=== PATIENT | female | born 1955 | race Caucasian/White ===

== ENCOUNTER 2021-12-04 16:18 | Outpatient (REF) | payer MEDICARE, SELFPAY ==
--- NOTE | ~2021-12-04 | US_ITS ---
EXAMINATION: US EXTRACRANIAL CAROTID DUPLEX, BILATERAL CLINICAL INFORMATION: Ocular ischemic syndrome. Rule out carotid occlusion COMPARISON: None TECHNIQUE: Real-time ultrasound and Doppler techniques (integrating B-mode 2-D vascular images, Doppler spectral analysis and color-flow Doppler imaging) were utilized to interrogate the extracranial carotid arteries, the vertebral arteries and proximal subclavian arteries bilaterally. The degree of stenosis is determined by criteria similar to NASCET. FINDINGS: Right Side: 1. There is moderate calcific atherosclerotic plaque seen in the bifurcation/proximal ICA region. 2. The common carotid artery PSV proximally is 51 cm/s and distally 20 cm/s. 3. The proximal internal carotid artery velocities are 45 cm/s systolic and 12 cm/s diastolic. 4. The proximal external carotid artery PSV is elevated at 527 cm/s. 5. The vertebral artery shows antegrade flow with elevated velocities at 248 cm/s. 6. The subclavian artery velocity is 251 cm/s. Left Side: 1. There is moderate calcific atherosclerotic plaque seen in the bifurcation/proximal ICA region. 2. The common carotid artery PSV proximally is 137 cm/s and distally 118 cm/s. 3. The proximal internal carotid artery velocities are 292 cm/s systolic and 70 cm/s diastolic. 4. The proximal external carotid artery PSV is 277 cm/s. 5. The vertebral artery shows antegrade flow. 6. The subclavian artery waveforms are normal with a velocity of 63 cm/s. US/US carotid duplex BI IMPRESSION: 1. RIGHT: Minimal, non-hemodynamically significant stenosis of the proximal right internal carotid artery corresponding to a 0-49% stenosis by velocity criteria. 2. LEFT: Moderate, hemodynamically significant stenosis of the proximal left internal carotid artery corresponding to a 50-79% stenosis by velocity criteria. 3. Also present are bilateral ECA stenoses, right significantly greater than left. A left vertebral artery stenosis may be present as well with significantly increased velocities.
== END 2021-12-04 16:19 | disposition home or self-care (01) ==
LOC: HO.US 16:18
PROVIDERS: Visit Provider Ophthalmology
DX: H34.11 Central retinal artery occlusion, right eye (principal); H35.82 Retinal ischemia
CPT/HCPCS: 93880

== ENCOUNTER 2021-12-08 14:26 | Outpatient (REF) | payer MEDICARE, SELFPAY ==
[2021-12-08 16:24] LABS: Blood Urea Nitrogen 11 mg/dL (9-16); Estimated Glomerular Filt Rate > 60
== END 2021-12-08 14:27 | disposition home or self-care (01) ==
LOC: HO.LAB 14:26
PROVIDERS: PCP Family Medicine; Visit Provider Surgery Vascular Surgery
DX: Z01.818 Encounter for other preprocedural examination (principal); I65.29 Occlusion and stenosis of unspecified carotid artery
CPT/HCPCS: 36415; 82565; 84520; 99202

== ENCOUNTER 2021-12-10 08:07 | Outpatient (REF) | payer MEDICARE, SELFPAY ==
--- NOTE | ~2021-12-10 | CT_ITS ---
EXAMINATION: CT ANGIOGRAM NECK WITH CONTRAST CLINICAL INFORMATION: Occlusion and stenosis of bilateral carotid arteries. COMPARISON: Carotid ultrasound 12/04/2021. TECHNIQUE: Test bolus sequences followed by intravenous administration 70 mL of Omnipaque 350. Helical imaging was performed in the axial plane from the thoracic inlet to the skull base. The data was processed at the clinical laboratory technologist workstation for generation of MIP sequences. Angled MIPs and volume rendered reformatted images were also generated at an offline 3D workstation. Stenoses are assessed in accordance with NASCET criteria unless otherwise indicated. This CT examination was performed using dose optimization techniques as appropriate, variously including the following: *Automated exposure control *Adjustment of mA and/or kV according to patient size (this includes techniques or standardized protocols for targeted exams where dose is matched to indication/reason for exam; i.e. extremities or head) *Use of iterative reconstruction technique DLP: 415 mGy-cm FINDINGS: NECK CTA: The aortic arch demonstrates atheromatous calcifications but is patent. There is approximately moderate stenosis of the left subclavian artery origin but the exact degree of stenosis is difficult to precisely estimate. The right common carotid artery is patent. Significant noncalcified and calcified plaque is seen at the right carotid bifurcation resulting in occlusion of the right internal carotid artery. The left common carotid arteries patent. Calcified and noncalcified plaque is seen at the left carotid bifurcation extending along the proximal left internal carotid artery resulting in luminal irregularity and plaque ulceration but with less than 50% stenosis. The cervical segment of left ICA is patent. The right vertebral artery demonstrates normal course and caliber. The left vertebral artery demonstrates decreased opacification compared with the contralateral side in the lower neck of uncertain significance. The upper vertebral arteries are both symmetrically opacified. PARTIALLY IMAGED HEAD CTA: The right ICA which is occluded in the neck reconstitutes at the carotid siphon and is patent through the carotid terminus. The visualized intracranial arteries are otherwise unremarkable. There is disposition of the bilateral channel marketing specialist. NON-VASCULAR FINDINGS: The cervical soft tissues are within normal limits. Emphysema is noted in the upper lungs. Multilevel degenerative changes are seen within the spine. There is prominent disc osteophyte complex at C5-C6. CT/CT angio neck IMPRESSION: Right internal carotid artery is occluded from its origin but reconstitutes at the carotid siphon. Atheromatous changes are seen at the left carotid bifurcation but results in less than 50% stenosis of the proximal internal carotid artery. Left vertebral artery demonstrates decreased opacification in the lower neck compared with the contralateral side but the upper cervical segments are widely patent and appear symmetric. Partially visualized intracranial arteries are unremarkable. Incidentally noted emphysema. This critical result was discussed with Dr. Foley on 12/15/2021 10:18 AM, and it was ascertained that the content and urgency of the report was understood at the time of direct communication.
[2021-12-10] MEDS: iohexoL 350 MG/ML 100 ML INFUS..BTL IV (09:44)
== END 2021-12-10 08:08 | disposition home or self-care (01) ==
LOC: HO.CT 08:07
PROVIDERS: PCP Family Medicine; Visit Provider Surgery Vascular Surgery
DX: I65.23 Occlusion and stenosis of bilateral carotid arteries (principal)
CPT/HCPCS: 70498; Q9967

== ENCOUNTER → 2021-12-15 09:33 | Outpatient (BNVA) | payer MEDICARE, SELFPAY | PROVIDERS: PCP Family Medicine; Visit Provider Surgery Vascular Surgery | DX: I65.23 Occlusion and stenosis of bilateral carotid arteries (principal); Z79.82 Long term (current) use of aspirin; Z79.899 Other long term (current) drug therapy | CPT/HCPCS: 99212 ==

== ENCOUNTER 2022-02-09 10:11 | Outpatient (REF) | payer MEDICARE, SELFPAY ==
--- NOTE | ~2022-02-09 | MM_ITS ---
EXAMINATION: MM SCREENING DIGITAL BREAST TOMOSYNTHESIS, BILATERAL CLINICAL INFORMATION: Screening. Asymptomatic. The lifetime risk of breast cancer based on the Tyrer-Cuzick Model is 4%. COMPARISON: Outside mammography: 05/11/2017, 11/05/2016, 05/05/2016 ([place]) TECHNIQUE: Digital breast tomosynthesis is performed in both the craniocaudal and mediolateral oblique views along with computer-aided detection (CAD). Synthesized 2D images are generated from the tomosynthesis. FINDINGS: The breasts are almost entirely fatty (ACR BI-RADS breast composition Category a). There are no significant masses, abnormal calcifications, or other abnormalities. Background stromal markings are stable. The axilla and skin contours are unremarkable. No significant changes. MM/MM tomosynthesis screening BI IMPRESSION: No mammographic evidence of malignancy. ASSESSMENT: BI-RADS 1: Negative RECOMMENDATION: Routine annual mammography screening. This patient's information was entered into a reminder system with a target due date for their next mammogram.
== END 2022-02-09 10:12 | disposition home or self-care (01) ==
LOC: HO.MAMMO 10:11
PROVIDERS: Visit Provider Family Medicine
DX: Z12.31 Encounter for screening mammogram for malignant neoplasm of breast (principal)
CPT/HCPCS: 77063; 77067

== ENCOUNTER 2022-07-01 08:29 | Outpatient (REF) | payer MEDICARE, SELFPAY ==
--- NOTE | ~2022-07-01 | US_ITS ---
EXAMINATION: US EXTRACRANIAL CAROTID DUPLEX, BILATERAL CLINICAL INFORMATION: Occlusion and stenosis of carotid arteries. COMPARISON: Carotid ultrasound from 12/04/[address] angiography neck of 12/10/2021. TECHNIQUE: Real-time ultrasound and Doppler techniques (integrating B-mode 2-D vascular images, Doppler spectral analysis and color-flow Doppler imaging) were utilized to interrogate the extracranial carotid arteries, the vertebral arteries and proximal subclavian arteries bilaterally. The degree of stenosis is determined by criteria similar to NASCET. FINDINGS: Right Side: There is moderate calcified atherosclerotic plaque of the bifurcation/proximal ICA region. The common carotid artery peak systolic velocity (PSV) proximally is 56 cm/s and distally is 18 cm/s. The internal carotid artery remains occluded, as observed on 12/10/2021. The proximal external carotid artery PSV is 471 cm/s. The visualized vertebral artery is patent, peak velocity of 112 cm/s. The subclavian artery waveforms are normal, peak velocity of 111 cm/s. Left Side: There is moderate atherosclerotic plaque of the bifurcation/proximal ICA region. The common carotid artery peak systolic velocity (PSV) proximally is 141 cm/s and distally is 120 cm/s. The proximal internal carotid artery velocities are 309 cm/s systolic and 54 cm/s diastolic (image 100). The ICA/CCA ratio is 2.6. The proximal external carotid artery PSV is 311 cm/s. The vertebral artery shows normal antegrade flow, peak velocity of 73 cm/s. The subclavian artery waveform is monophasic, consistent with a proximal stenosis, with peak velocity of 76 cm/s. US/US carotid duplex BI IMPRESSION: * Atherosclerotic disease of the carotid arteries. The right internal carotid artery remains completely occluded, as observed on CT angiography from 12/10/2021. There is hemodynamically significant stenosis of the right external carotid artery. * There is persistent hemodynamically significant stenosis of the proximal left internal carotid artery corresponding to estimated range of 50-79% stenosis, as observed on prior ultrasound from 12/04/2021. Also, there is hemodynamically significant stenosis of the proximal left external carotid artery.
== END 2022-07-01 08:30 | disposition home or self-care (01) ==
LOC: HO.HMGCX 08:29
PROVIDERS: PCP Family Medicine; Visit Provider Surgery Vascular Surgery
DX: I65.23 Occlusion and stenosis of bilateral carotid arteries (principal)
CPT/HCPCS: 93880

== ENCOUNTER → 2023-01-03 12:43 | Outpatient (BNVA) | payer MEDICARE, SELFPAY | PROVIDERS: PCP Family Medicine; Visit Provider Surgery Vascular Surgery | DX: I65.23 Occlusion and stenosis of bilateral carotid arteries (principal) | CPT/HCPCS: 99212 ==

== ENCOUNTER 2023-07-04 10:30 | Outpatient (REF) | payer MEDICARE, SELFPAY ==
--- NOTE | ~2023-07-04 | US_ITS ---
EXAMINATION: US EXTRACRANIAL CAROTID DUPLEX, BILATERAL CLINICAL INFORMATION: Carotid artery stenosis COMPARISON: Carotid duplex on 07/01/2022 TECHNIQUE: Real-time ultrasound and Doppler techniques (integrating B-mode 2-D vascular images, Doppler spectral analysis and color-flow Doppler imaging) were utilized to interrogate the extracranial carotid arteries, the vertebral arteries and proximal subclavian arteries bilaterally. The degree of stenosis is determined by criteria similar to NASCET. FINDINGS: Right Side: 1. There is severe atherosclerotic plaque seen in the bifurcation/proximal ICA region. 2. The common carotid artery PSV proximally is 67 cm/s and distally 19 cm/s. 3. The proximal internal carotid artery is occluded. 4. The proximal external carotid artery PSV is 435 cm/s. 5. The vertebral artery shows antegrade flow. 6. The subclavian artery waveforms are normal. Left Side: 1. There is moderate atherosclerotic plaque seen in the bifurcation/proximal ICA region. 2. The common carotid artery PSV proximally is 158 cm/s and distally 94 cm/s. 3. The proximal internal carotid artery velocities are 269 cm/s systolic and 58 cm/s diastolic. 4. The proximal external carotid artery PSV is 253 cm/s. 5. The vertebral artery shows antegrade flow. 6. The subclavian artery waveforms are normal. US/US carotid duplex BI IMPRESSION: 1. RIGHT: Occluded, stable. 2. LEFT: Moderate, hemodynamically significant stenosis of the proximal left internal carotid artery corresponding to a 50-79% stenosis by velocity criteria. 3. There is no change in the category severity of disease when compared to the previous study dated 07/01/2022.
== END 2023-07-04 10:31 | disposition home or self-care (01) ==
LOC: HO.HMGCX 10:30
PROVIDERS: PCP Family Medicine; Visit Provider Surgery Vascular Surgery
DX: I65.23 Occlusion and stenosis of bilateral carotid arteries (principal)
CPT/HCPCS: 93880

== ENCOUNTER 2023-07-14 10:56 | Outpatient (AMB) | payer MEDICARE, SELFPAY ==
--- NOTE | 2023-07-14 11:00 | MHC.OFFVIS ---
Intake Vital Signs 07/14/23 11:03 07/14/23 11:05 Height 4 ft 11 in Weight 172 lb BMI 34.7 BP 138/84 140/88 H Intake Visit Reasons: Follow up 07/04 Carotid US Intake Note: pt here for s/p carotid US on 07/04/23.Pt says shes doing good her only concern is her legs tired easily when she walks ans she still gets headaches all the time Allergies amlodipine Adverse Reaction (Unknown, Verified 07/14/23 11:03) Unknown amoxicillin Adverse Reaction (Unknown, Verified 07/14/23 11:03) Unknown benazepril Adverse Reaction (Unknown, Verified 07/14/23 11:03) Unknown erythromycin base Adverse Reaction (Unknown, Verified 07/14/23 11:03) Unknown latex Adverse Reaction (Unknown, Verified 07/14/23 11:03) Unknown Macrolide Antibiotics Adverse Reaction (Unknown, Verified 07/14/23 11:03) Unknown Penicillins Adverse Reaction (Unknown, Verified 07/14/23 11:03) Unknown Sulfa (Sulfonamide Antibiotics) Adverse Reaction (Unknown, Verified 07/14/23 11:03) Unknown HPI Follow up 07/04 Carotid US HPI Details Very pleasant 67-year-old female presents for follow-up regarding carotid disease. She reports no interval issues. She continues to smoke about a pack per day. She is now for follow-up with carotid ultrasound. Of note daughter was at bedside and it notified me that she has difficulty ambulating distances. She cannot even walk a block. She notes leg cramping right more so than left. This has been progressing over the last year to. She now is also for lower extremity evaluation as well. [facility] Medical History (Updated 07/14/23 @ 11:32 by Stefan Foley MD) Graves disease Back ache Carpal tunnel syndrome Exophthalmic ophthalmoplegia Hyperlipidemia HTN (hypertension) Severe obesity (BMI 35.0-35.9 with comorbidity) Microhematuria Nephrolithiasis Continuous tobacco abuse Hypothyroidism due to medication Type 2 diabetes mellitus with diabetic autonomic (poly)neuropathy Gastro-esophageal reflux disease without esophagitis Diabetic nephropathy PAD (peripheral artery disease) Social History (Updated 01/03/23 @ 12:58 by RAZA Patel) Patient Tobacco Use Status: Current everyday Tobacco user Cigarettes Per Day: 20 Review of Systems Const All systems reviewed & are unremarkable except as noted in HPI and below Reports no additional complaints ENT Reports Normal hearing present Card Denies chest pain, Denies chest pain at rest, Denies chest pain with activity and Denies pedal edema Resp Denies cough GI Denies abdominal pain Musc Denies abnormal gait, Denies muscle cramps and Denies radiating pain into limb Skin/Breast Denies skin ulcer and Denies wounds Neuro Reports Normal hearing present and Denies abnormal gait Psych Reports no additional complaints Physical Exam Vital Signs: Last Vital Signs BP 140/88 H 07/14/23 11:05 BMI result Body Mass Index 34.7 Const General: cooperative, healthy appearing and comfortable Orientation/consciousness: oriented to person, oriented to place and oriented to time HEENT Head: Yes normal to inspection Neck Neck: Yes normal visual inspection Carotids: no bruits Chest Chest palpation & inspection: normal inspection of the chest Resp Effort & Inspection: normal respiratory effort and able to speak in complete sentences Auscultation: clear to auscultation bilaterally, no crackles, no rales, no rhonchi and no wheezes Cardio Other: Bilateral DP Rate: regular rate Rhythm: regular rhythm Heart sounds: S1 normal heart sound present and S2 normal heart sound present Bruits: no carotid bruits GI Inspection: Yes normal to inspection Skin Wounds: no wounds Hair: normal Neuro General: oriented to person, oriented to place and oriented to time Cranial nerves: Yes CN's II-XII intact bilaterally and Yes Normal hearing present Cognition (Neuro): normal cognition Motor exam (neuro): 5/5 motor strength present throughout Extrem Other: venous exam: No significant superficial varicosities or spider telangiectasias, minimal edema General: No clubbing, No cyanosis and No edema Psych Appearance: grossly normal Mental Status: mental status grossly normal Speech and movement: Normal speech and movement present Assessment & Plan Assessment & Plan (1) Bilateral carotid artery stenosis: Code(s): I65.23 - Occlusion and stenosis of bilateral carotid arteries Plan: In short patient has asymptomatic carotid disease. We have reviewed signs and symptoms of a stroke. We also discussed risk factor modification inclusive a healthy diet low in cholesterol. The patient will follow up with us with surveillance ultrasound of the carotids 1 year. Should there be any changes or signs or symptoms of a stroke we will be happy to see them back sooner. Thank you for allowing us to participate in this patient's care. If there are any questions or concerns please do not hesitate to contact us. (2) PAD (peripheral artery disease): Code(s): I73.9 - Peripheral vascular disease, unspecified Plan: In short patient does have an element of peripheral vascular disease. She reports claudication type symptoms. In addition she has a remote history of arterial testing which I do not have access to. We will obtain noninvasive arterial testing. We did discuss routine risk factor modification in particular smoking cessation. She will follow up with us after testing. Thank you for allowing us to assist in her care Orders: Orders US carotid duplex BI 364 Days I65.23 - Occlusion and stenosis of bilateral carotid arteries US arterial duplex LE BI 1 Week I73.9 - Peripheral vascular disease, unspecified Coding Level of Care Code Est Pt Level 4 (43942) Diagnoses Bilateral carotid artery stenosis I65.23 PAD (peripheral artery disease) I73.9
[2023-07-14 11:03] VITALS: BP 138/84; BMI 34.7
[2023-07-14 11:05] VITALS: BP 140/88
== END 2023-07-14 11:34 | disposition home or self-care (01) ==
PROVIDERS: PCP Family Medicine; Visit Provider Surgery Vascular Surgery
DX: I65.23 Occlusion and stenosis of bilateral carotid arteries (principal); I73.9 Peripheral vascular disease, unspecified
CPT/HCPCS: 99213

== ENCOUNTER → 2023-07-14 10:56 | Outpatient (BNVA) | payer MEDICARE, SELFPAY | PROVIDERS: PCP Family Medicine; Visit Provider Surgery Vascular Surgery | DX: I65.23 Occlusion and stenosis of bilateral carotid arteries (principal); I73.9 Peripheral vascular disease, unspecified | CPT/HCPCS: 99212 ==

== ENCOUNTER 2024-07-24 06:24 | Inpatient (IN) | payer MEDICARE, SELFPAY ==
--- NOTE | 2024-07-24 | ECG_ITS ---
Test Reason : fall Blood Pressure : / mmHG Vent. Rate : 065 BPM Atrial Rate : 065 BPM P-R Int : 146 ms QRS Dur : 084 ms QT Int : 398 ms P-R-T Axes : 005 038 059 degrees QTc Int : 413 ms Normal sinus rhythm Normal ECG No previous ECGs available Referred By: Generic ED Physician Electronically Signed By:Neo Delacruz
--- NOTE | ~2024-07-24 | XR_ITS ---
EXAMINATION: XR RIBS, LEFT CLINICAL INFORMATION: Trauma. Pain COMPARISON: None available. TECHNIQUE: 3 views of the left ribs were obtained. FINDINGS: Slightly oblique nondisplaced fracture lateral 11th rib. No other fractures are seen. Lungs clear. No pneumothorax. Heart and pulmonary vessels normal. XR/XR ribs LT min 3V w CXR1V IMPRESSION: Left 11th rib fracture. Electronically signed by: Fish Fabian MD 07/24/2024 10:47 AM EDT
--- NOTE | ~2024-07-24 | CT_ITS ---
EXAMINATION: CT HEAD WITHOUT CONTRAST CT CERVICAL SPINE WITHOUT CONTRAST CLINICAL INFORMATION: Fall. Trauma. COMPARISON: None TECHNIQUE: Contiguous axial imaging was performed from the skull base to vertex without intravenous administration of contrast. Contiguous axial imaging was performed from the upper chest through the skull base without intravenous administration of contrast. Coronal and sagittal reformats were obtained at the acquisition workstation. This CT examination was performed using dose optimization techniques as appropriate, variously including the following: *Automated exposure control *Adjustment of mA and/or kV according to patient size (this includes techniques or standardized protocols for targeted exams where dose is matched to indication/reason for exam; i.e. extremities or head) *Use of iterative reconstruction technique DLP: 898 mGy-cm FINDINGS: Head: There is no evidence of acute intracranial hemorrhage or edematous territorial infarction. [place]-white matter differentiation appears preserved. Proportional prominence of the ventricles and cortical sulci with diffuse volume loss. Patchy hypodensities within the periventricular and subcortical white matter likely representing mild to moderate chronic microangiopathy. Small chronic lacunar infarcts within the right caudate and and lentiform nucleus. There is no mass effect or midline shift. No acute extra-axial collection. No obstructive hydrocephalus. No acute soft tissue or osseous abnormalities. Remote deformities of bilateral lamina papyracea and herniation of extraconal orbital fat with likely entrapment of the medial rectus muscles. There is atrophy of bilateral inferior recti. Mild mucosal thickening involving the visualized ethmoid air cells and left compartment of sphenoid sinus. Trace left mastoid effusion. Right mastoid air cells are clear. Cervical Spine: The atlantooccipital and atlantoaxial articulations remain well aligned. Mild degenerative changes of the atlantoaxial articulations. Straightening of the normal cervical lordosis. Otherwise, there is anatomic alignment of the vertebral bodies and posterior elements. No evidence of acute fracture or subluxation. The vertebral body heights are maintained. Multilevel cervical spondylosis with marginal osteophytes, endplate degenerative changes and intervertebral disc space narrowing with findings most pronounced at C4-C5. At C4-C5 there is disc osteophyte complex with uncovertebral hypertrophy, right greater than left and severe right foraminal narrowing. At C5-C6 there is disc osteophyte complex with asymmetric left uncovertebral hypertrophy and severe left foraminal narrowing. No high-grade spinal canal stenosis. Mild multilevel facet arthropathy. There is no prevertebral soft tissue swelling. The thyroid gland is not well-visualized/diminutive in size. The lung apices demonstrate mild emphysematous changes. CT/CT cervical spine wo IV con IMPRESSION: 1. No acute intracranial pathology. Diffuse volume loss and mild to moderate chronic microangiopathy and few chronic lacunar infarcts. 2. No acute fracture or traumatic subluxation involving the cervical spine. Multilevel cervical spondylosis as detailed with severe right foraminal stenosis at C4-C5 and severe left foraminal stenosis at C5-C6. 3. Remote deformities of bilateral lamina papyracea and herniation of extraconal orbital fat with likely entrapment of the medial rectus muscles. Electronically signed by: Ephraim Oneil MD 07/24/2024 10:59 AM EDT
[2024-07-24 06:25] VITALS: BP 99/58; PULSE 66; RESP 16; TEMP 36.4; O2SAT 97; BMI 31.7
[2024-07-24 06:55] LABS: Basophils Absolute Auto 0.1 X10*3/uL (0.0-0.2); Basophils Percent Auto 0.4 % (0-2); Eosinophils Absolute Auto 0.3 X10*3/uL (0.0-0.4); Eosinophils Percent Auto 1.7 % (0-4); Hematocrit 39.9 % (37.0-47.0); Hemoglobin 14.3 g/dl (12.0-16.0); Imm Gran Abs Auto 0.08 X10*3/uL (0.00-0.03); Imm Gran Pct Auto 0.5 % (0.0-0.4); Lymphocytes Absolute Auto 2.2 X10*3/uL (1.2-4.9); Lymphocytes Percent Auto 13.9 % (20-40); MANUAL DIFF FLAG NO; Mean Corpuscular HGB Conc 35.8 g/dl (31.0-35.0); Mean Corpuscular Hemoglobin 32.2 pg (27.0-33.0); Mean Corpuscular Volume 89.9 fL (80.0-98.0); Mean Platelet Volume 8.8 fL (9.4-12.3); Monocytes Absolute Auto 1.1 X10*3/uL (0.1-1.2); Monocytes Percent Auto 7.1 % (2-11); Neutrophils Percent Auto 76.4 % (45-73); Platelet Count 252 X10*3/uL (160-400); Red Blood Count 4.44 X10*6/uL (4.20-5.50); Red Cell Distribution Width 14.1 % (11.0-16.0); White Blood Count 15.7 X10*3/uL (4.8-10.8)
[2024-07-24 07:13] LABS: Alanine Aminotransferase 38 U/L (0-31); Albumin Level 4.2 g/dL (3.5-5.0); Alkaline Phosphatase 63 U/L (39-117); Anion Gap 16 (12-20); Aspartate Amino Transferase 30 U/L (5-31); Bilirubin Total 0.5 mg/dL (0.0-1.0); Blood Urea Nitrogen 21 mg/dL (9-16); Calcium 10.6 mg/dL (8.4-10.2); Carbon Dioxide 24 mmol/L (22-29); Chloride 95 mmol/L (96-108); Creatinine Clr Calc Pharmacy 31.4; Estimated Glomerular Filt Rate 36; Glucose Random 132 mg/dL (60-115); Potassium 3.6 mmol/L (3.3-5.1); Sodium 131 mmol/L (135-145); Total Protein 7.2 g/dL (6.5-8.0)
--- NOTE | 2024-07-24 08:00 | ED_ITS ---
HPI - Fall General Chief Complaint: Fall Stated Complaint: fell twice, left side pain Time Seen by Provider: 07/24/24 07:50 Source: patient Limitations: no limitations History of Present Illness HPI Narrative: THIS IS 68 YEARS OLD PATIENT WITH HISTORY OF DIABETES BLIND IN THE RIGHT EYE PRESENTED TO EMERGENCY ROOM AFTER 2 FALL. PATIENT STATES THAT THE FOOT GAVE UP TWICE. SHE IS COMPLAINING OF LEFT CHEST WALL PAIN. DENIES ANY LOC. SHE LIVES BY HERSELF complaint: fall Onset (ago): hour(s) (4) Fall from: standing Fall witnessed: no Place fall occurred: home Loss of consciousness: none Prolonged down time: no Related Data Home Medications ?Medication ?Instructions ?Recorded ?Confirmed atorvastatin 40 mg tablet 40 mg PO DAILY 12/08/21 blood sugar diagnostic ([employer] #10 ea 12/08/21 Ultra Test strips) brimonidine 0.2 % eye drops 0 drp ophthalmic (eye) 12/08/21 [id number]-rcxahmwuvesab-kkipercg tab PO 12/08/21 50 mg-325 mg-40 mg tablet dulaglutide 0.75 mg/0.5 mL 0.75 mg subcut QWEEK 12/08/21 subcutaneous pen injector ([employer]) glipizide 10 mg tablet, extended 10 mg PO BID 12/08/21 release 24 hr hydrochlorothiazide 12.5 mg capsule 12.5 mg PO DAILY 12/08/21 lancets 30 gauge ([employer] Delica #100 ea 12/08/21 Lancets) latanoprost 0.005 % eye drops 0 drp ophthalmic (eye) 12/08/21 levothyroxine 100 mcg tablet 100 mcg PO DAILY 12/08/21 losartan 100 mg tablet 100 mg PO DAILY 12/08/21 metformin 500 mg tablet,extended 500 mg PO DAILY 12/08/21 release 24 hr nicotine 21 mg/24 hr daily 1 patch topical DAILY 12/08/21 transdermal patch omeprazole 40 mg capsule,delayed 40 mg PO DAILY 12/08/21 release timolol maleate 0.5 % eye drops 0 drp ophthalmic (eye) 12/08/21 empagliflozin 25 mg tablet 25 mg PO DAILY 01/03/23 (Jardiance) Allergies Allergy/AdvReac Type Severity Reaction Status Date / Time amlodipine AdvReac Unknown Unknown Verified 07/24/24 06:36 amoxicillin AdvReac Unknown Unknown Verified 07/24/24 06:36 benazepril AdvReac Unknown Unknown Verified 07/24/24 06:36 erythromycin base AdvReac Unknown Unknown Verified 07/24/24 06:36 latex AdvReac Unknown Unknown Verified 07/24/24 06:36 Macrolide Antibiotics AdvReac Unknown Unknown Verified 07/24/24 06:36 Penicillins AdvReac Unknown Unknown Verified 07/24/24 06:36 Sulfa (Sulfonamide AdvReac Unknown Unknown Verified 07/24/24 06:36 Antibiotics) Review of Systems 2 Constitutional: Constitutional: Reports no additional constitutional complaints ENT: Reports system reviewed and no additional complaints, except as documented Genitourinary: Genitourinary: Reports no additional female genitourinary complaints [facility] Past Medical History Attestation statement: The following information was validated with the patient. [facility] Narrative: DIABETES, OBESITY, BLIND IN THE RIGHT EYE, HYPERTENSION Medical History Graves disease Back ache Carpal tunnel syndrome Exophthalmic ophthalmoplegia Hyperlipidemia HTN (hypertension) Severe obesity (BMI 35.0-35.9 with comorbidity) Microhematuria Nephrolithiasis Continuous tobacco abuse Hypothyroidism due to medication Type 2 diabetes mellitus with diabetic autonomic (poly)neuropathy Gastro-esophageal reflux disease without esophagitis Diabetic nephropathy PAD (peripheral artery disease) Social History Social History Patient Tobacco Use Status: Current everyday Tobacco user Cigarettes Per Day: 20 Advance Directives: No Advance Directives Information Provided: Yes Do you have a plan to hurt others: No Plan Physical Exam 2 Vital Signs: Vital Signs: Last Vital Signs Temp 97.7 F 07/24/24 12:42 Pulse 65 07/24/24 12:42 Resp 16 07/24/24 12:42 BP 167/48 H 07/24/24 12:42 Pulse Ox 93 07/24/24 12:42 O2 Del Method Room Air 07/24/24 12:42 BMI result Body Mass Index 31.7 SHE IS AWAKE ALERT IN NOT ACUTE DISTRESS Const: General: comfortable Nutritional Appearance: well nourished HEENT: General nose exam: Normal external nose present Face and sinus: Yes normal facial exam Eyes: Other: NO RED REFLEX IN THE OD Neck: Neck: Yes normal visual inspection Resp: Effort & Inspection: normal respiratory effort Auscultation: clear to auscultation bilaterally Cardio: Jugular venous distension: no JVD Rate: regular rate Rhythm: r egular rhythm GI: Inspection: Yes normal to inspection Palpation (GI): Soft to palpation, not firm and nontender Percussion: Yes normal to percussion Skin: General skin exam: no rashes or lesions noted Course Reevaluation(s) Reevaluation #1: Workup completed the patient has an ROMERO, elevated white count, hypercalcemia, left rib fracture will admit for IV hydration Time: 12:58 Medications Administered Discontinued Medications Generic Name Dose Route Start Last Admin Trade Name Freq PRN Reason Stop Dose Admin Acetaminophen 975 mg 07/24/24 08:34 07/24/24 08:45 Acetaminophen 325 Mg Tablet PO 07/24/24 08:35 975 mg ONCE ONE Administration Sodium Chloride 1,000 mls @ 999 mls/hr 07/24/24 09:45 07/24/24 10:14 Ns IVCONT 07/24/24 10:45 999 mls/hr .Q1H1M LENCHO Administration Medical Decision Making Medical Decision Making [facility] [place] Narrative: PATIENT PRESENTED AFTER A FALL COMPLAINING OF LEFT CHEST WALL PAIN WE WILL OBTAIN IMAGING OF THE CHEST AND REASSESS ALSO CHECK LAB WORK EKG Differential Diagnosis Differential Diagnoses: The differential diagnosis associated with the presentation includes RIB FRACTURE/PNEUMOTHORAX/CVA/SUBDURAL HEMATOMA Consult Healthcare Provider Management of the patient was discussed with: Hospitalist Lab Data [facility] [place] Lab Attestation statement: I reviewed the patient's lab results. 07/24/24 06:48 07/24/24 06:48 Labs: Lab Results 07/24/24 07/24/24 Range/Units 06:48 11:25 WBC 15.7 H (4.8-10.8) X10*3/uL RBC 4.44 (4.20-5.50) X10*6/uL Hgb 14.3 (12.0-16.0) g/dl Hct 39.9 (37.0-47.0) % MCV 89.9 (80.0-98.0) fL MCH 32.2 (27.0-33.0) pg MCHC 35.8 H (31.0-35.0) g/dl RDW 14.1 (11.0-16.0) % Plt Count 252 (160-400) X10*3/uL MPV 8.8 L (9.4-12.3) fL Immature Gran % (Auto) 0.5 H (0.0-0.4) % Neut % (Auto) 76.4 H (45-73) % Lymph % (Auto) 13.9 L (20-40) % [place] % (Auto) 7.1 (2-11) % Eos % (Auto) 1.7 (0-4) % Baso % (Auto) 0.4 (0-2) % Lymph # (Auto) 2.2 (1.2-4.9) X10*3/uL [place] # (Auto) 1.1 (0.1-1.2) X10*3/uL Eos # (Auto) 0.3 (0.0-0.4) X10*3/uL Baso # (Auto) 0.1 (0.0-0.2) X10*3/uL Abs Immat Gran (auto) 0.08 H (0.00-0.03) X10*3/uL Absolute Neuts (auto) 12.0 H (2.0-8.3) x10*3/uL Absolute Nucleated RBC 0.000 (0.0-0.012) X10*3/uL Nucleated RBC % (auto) 0.0 (0.0-0.2) /100WBC Sodium 131 L (135-145) mmol/L Potassium 3.6 (3.3-5.1) mmol/L Chloride 95 L (96-108) mmol/L Carbon Dioxide 24 (22-29) mmol/L Anion Gap 16 (12-20) BUN 21 H (9-16) mg/dL Creatinine 1.45 H (0.5-1.4) mg/dL Estim Creat Clear Calc 31.4 Estimated GFR 36 Random Glucose 132 H (60-115) mg/dL Calcium 10.6 H (8.4-10.2) mg/dL Total Bilirubin 0.5 (0.0-1.0) mg/dL AST 30 (5-31) U/L ALT 38 H (0-31) U/L Alkaline Phosphatase 63 (39-117) U/L Troponin I High Sens < 2.7 (<3.5-17.0) ng/L Total Protein 7.2 (6.5-8.0) g/dL Albumin 4.2 (3.5-5.0) g/dL Urine Color Yellow Urine Appearance Clear Urine pH 6.5 (5.0-9.0) Ur Specific [place] 1.010 (1.005-1.025) Urine Protein Negative (Neg-Trace) mg/dL Urine Glucose (UA) Negative (Negative) mg/dL Urine Ketones Trace (Negative) mg/dL Urine Blood Negative (Negative) Urine Nitrite Negative (Negative) Ur Leukocyte Esterase Small (1+) H (Negative) Urine RBC 0-2 (0-2) /HPF Urine WBC 6-10 H (0-5) /HPF Ur Squamous Epith Cells 6-10 (0-2) /HPF Urine Bacteria Trace (None Seen) Hyaline Casts 0-2 (0-2) /LPF Independent Interpretation I performed an independent interpretation of an: Plain X-Ray Radiology Impression Discussion of test interpretation with radiology: I have reviewed the radiologist's reading. Independent Historian Clinical information obtained from an independent historian. History obtained from or confirmed by: EMS and Other (daughter) Chronic Conditions Patient?s care impacted by: Diabetes Discharge Plan Discharge Clinical Impression: ROMERO (acute kidney injury), Hypercalcemia Fracture of rib Qualifiers: Encounter type: initial encounter Rib fracture type: single rib Fracture type: closed Laterality: left Qualified Code(s): S22.32XA - Fracture of one rib, left side, initial encounter for closed fracture Patient Disposition: Admitted As Inpatient Print Language: Lithuanian
[2024-07-24 08:29] LABS: Troponin-I High Sensitivity < 2.7 ng/L (<3.5-17.0)
--- NOTE | 2024-07-24 08:38 | PC.NURSE ---
Pt to Xray.
[2024-07-24 08:42] VITALS: BP 136/49; PULSE 67; RESP 20; O2SAT 97
[2024-07-24] MEDS: Acetaminophen 325 MG TABLET 975 MG PO (08:45)
[2024-07-24] MEDS: 0.9 % Sodium Chloride 1,000 ML 999 ML IVCONT (10:14)
--- NOTE | 2024-07-24 10:14 | PC.NURSE ---
Pt denies any urge to void for urine sample at this time. IV established, IVF bolus hung per order.
[2024-07-24 11:31] LABS: Appearance Urine Clear; Color Urine Yellow; Glucose Urine UA Negative (Negative); Leukocyte Esterase Urine Small (1+) (Negative); Nitrite Urine Negative (Negative); PH 6.5 (5.0-9.0); UMIC TRIGGER UACC YES; Urine Blood Negative (Negative); Urine Ketones Trace mg/dL (Negative); Urine Protein Negative (Neg-Trace)
[2024-07-24 11:34] LABS: Bacteria Urine Trace (None Seen); Hyaline Casts Urine 0-2 /LPF (0-2); RBC Urine 0-2 /HPF (0-2); UACC Culture Trigger YES
[2024-07-24 12:42] VITALS: BP 167/48; PULSE 65; RESP 16; TEMP 36.5; O2SAT 93
--- NOTE | 2024-07-24 13:18 | PM.IMHP ---
History of Present Illness Date of Service: 07/24/24 Chief Complaint: Romero 68-year-old female with a history of diabetes blind in the right eye along with peripheral artery disease and hypertension presents after 2 falls at home. She told her son-in-law both times that she felt her legs gave out and went to the floor. She denies loss of consciousness. She also denies palpitations prior to fall. On review of medications, patient takes glyburide twice daily. Son-in-law faithful with point of cares. Notes reviewed and several point of cares are in the 60s. She was also noted to be hyponatremic. She will be admitted for treatment of same Review of Systems Review of Systems: Denies chest pain Denies shortness of breath Denies nausea vomiting diarrhea Denies fever chills [facility] Medical History (Updated 07/24/24 @ 13:23 by Liu Gerber DO) Graves disease Back ache Carpal tunnel syndrome Exophthalmic ophthalmoplegia Hyperlipidemia HTN (hypertension) Severe obesity (BMI 35.0-35.9 with comorbidity) Microhematuria Nephrolithiasis Continuous tobacco abuse Hypothyroidism due to medication Type 2 diabetes mellitus with diabetic autonomic (poly)neuropathy Gastro-esophageal reflux disease without esophagitis Diabetic nephropathy PAD (peripheral artery disease) Social History Patient Tobacco Use Status: Current everyday Tobacco user Cigarettes Per Day: 20 Advance Directives: No Advance Directives Information Provided: Yes Do you have a plan to hurt others: No Plan Meds Allergies Allergy/AdvReac Type Severity Reaction Status Date / Time amlodipine AdvReac Unknown Unknown Verified 07/24/24 06:36 amoxicillin AdvReac Unknown Unknown Verified 07/24/24 06:36 benazepril AdvReac Unknown Unknown Verified 07/24/24 06:36 erythromycin base AdvReac Unknown Unknown Verified 07/24/24 06:36 latex AdvReac Unknown Unknown Verified 07/24/24 06:36 Macrolide Antibiotics AdvReac Unknown Unknown Verified 07/24/24 06:36 Penicillins AdvReac Unknown Unknown Verified 07/24/24 06:36 Sulfa (Sulfonamide AdvReac Unknown Unknown Verified 07/24/24 06:36 Antibiotics) Active Medications: Current Medications Acetaminophen (Acetaminophen 325 Mg Tablet) 650 mg PO Q6H PRN PRN Reason: Pain, Mild (Pain Scale 1-3), fever or headache Calcium Carbonate (Calcium Carbonate 750 Mg Tab.Chew) 750 mg PO Q4H PRN PRN Reason: Heartburn Enoxaparin Sodium (Enoxaparin Sodium 30 Mg/0.3 Ml Syringe) 30 mg SUBCUT Q24H [facility] Glucose (Glucose Gel 15 Gm Gel..Gram.) 15 gm PO Q15M PRN; Protocol PRN Reason: per Hypoglycemia Standing Ord. Sodium Chloride (Ns) 1,000 mls @ 120 mls/hr IVCONT .Q8H20M [facility] Dextrose (D10) 250 mls @ 750 mls/hr IV Q15M PRN; Protocol PRN Reason: per Hypoglycemia Standing Ord. Insulin Human Lispro (Insulin Lispro 100 Unit/Ml 3 Ml Vial) 0 unit SUBCUT QIDACHS [facility]; Protocol Magnesium Hydroxide (Milk Of Magnesia 30 Ml Oral.Susp) 30 ml PO DAILY PRN PRN Reason: Constipation Melatonin (Melatonin 3 Mg Tablet) 6 mg PO BEDTIME PRN PRN Reason: Insomnia Ondansetron HCl (Ondansetron Hcl 4 Mg/2 Ml Vial) 4 mg IVPUSH Q8H PRN PRN Reason: Nausea and Vomiting Oxycodone HCl (Oxycodone Hcl Immed Release 5 Mg Tablet) 5 mg PO Q6H PRN PRN Reason: Pain, Severe (Pain Scale 7-10) Sodium Chloride (0.9 % Sodium Chloride Flush 3 Ml Syringe) 3 ml IVFLUSH QSHIFT [facility] Home Medications ?Medication ?Instructions ?Recorded ?Confirmed ?Last Taken ?Type atorvastatin 40 mg tablet 40 mg PO DAILY 12/08/21 Unknown History blood sugar diagnostic ([employer] #10 ea 12/08/21 Unknown History Ultra Test strips) brimonidine 0.2 % eye drops 0 drp ophthalmic (eye) 12/08/21 Unknown History jgewwejflc-znyocknmpoofa-wshcvcoa tab PO 12/08/21 Unknown History 50 mg-325 mg-40 mg tablet dulaglutide 0.75 mg/0.5 mL 0.75 mg subcut QWEEK 12/08/21 Unknown History subcutaneous pen injector ([facility]) glipizide 10 mg tablet, extended 10 mg PO BID 12/08/21 Unknown History release 24 hr hydrochlorothiazide 12.5 mg capsule 12.5 mg PO DAILY 12/08/21 Unknown History lancets 30 gauge ([employer] Delica #100 ea 12/08/21 Unknown History Lancets) latanoprost 0.005 % eye drops 0 drp ophthalmic (eye) 12/08/21 Unknown History levothyroxine 100 mcg tablet 100 mcg PO DAILY 12/08/21 Unknown History losartan 100 mg tablet 100 mg PO DAILY 12/08/21 Unknown History metformin 500 mg tablet,extended 500 mg PO DAILY 12/08/21 Unknown History release 24 hr nicotine 21 mg/24 hr daily 1 patch topical DAILY 12/08/21 Unknown History transdermal patch omeprazole 40 mg capsule,delayed 40 mg PO DAILY 12/08/21 Unknown History release timolol maleate 0.5 % eye drops 0 drp ophthalmic (eye) 12/08/21 Unknown History empagliflozin 25 mg tablet 25 mg PO DAILY 01/03/23 Unknown History (Jardiance) Physical Exam Vital Signs and Narrative: Vital Signs: Last Vital Signs Temp 97.7 F 07/24/24 12:42 Pulse 65 07/24/24 12:42 Resp 16 07/24/24 12:42 BP 167/48 H 07/24/24 12:42 Pulse Ox 93 07/24/24 12:42 O2 Del Method Room Air 07/24/24 12:42 BMI result Body Mass Index 31.7 Const: Other: Awake alert no acute distress Resp: Other: Clear but diminished at bases. Scattered expiratory wheezes Cardio: Other: No S4; positive S1-S2; no S3 murmurs rubs or gallops GI: Other: Soft nontender nondistended normoactive bowel sounds Neuro: Other: Cranial nerves 2-12 grossly intact bilaterally. No light reflex right eye. Motor 5/5 all extremities sensation intact Extrem: Other: No edema Results Labs 07/24/24 06:48 07/24/24 06:48 Labs: Laboratory Results - last 24 hr 07/24/24 07/24/24 06:48 11:25 MCV 89.9 MCH 32.2 MCHC 35.8 H RDW 14.1 Plt Count 252 MPV 8.8 L Immature Gran % (Auto) 0.5 H Neut % (Auto) 76.4 H Lymph % (Auto) 13.9 L [place] % (Auto) 7.1 Eos % (Auto) 1.7 Baso % (Auto) 0.4 Lymph # (Auto) 2.2 [place] # (Auto) 1.1 Eos # (Auto) 0.3 Baso # (Auto) 0.1 Abs Immat Gran (auto) 0.08 H Absolute Neuts (auto) 12.0 H Absolute Nucleated RBC 0.000 Nucleated RBC % (auto) 0.0 Anion Gap 16 Estim Creat Clear Calc 31.4 Estimated GFR 36 Random Glucose 132 H Calcium 10.6 H Total Bilirubin 0.5 AST 30 ALT 38 H Alkaline Phosphatase 63 Troponin I High Sens < 2.7 Total Protein 7.2 Albumin 4.2 Urine Color Yellow Urine Appearance Clear Urine pH 6.5 Ur Specific [place] 1.010 Urine Protein Negative Urine Glucose (UA) Negative Urine Ketones Trace Urine Blood Negative Urine Nitrite Negative Ur Leukocyte Esterase Small (1+) H Urine RBC 0-2 Urine WBC 6-10 H Ur Squamous Epith Cells 6-10 Urine Bacteria Trace Hyaline Casts 0-2 Imaging Radiologist's Impressions: Impressions Head CT 07/24/24 07:58 IMPRESSION: 1. No acute intracranial pathology. Diffuse volume loss and mild to moderate chronic microangiopathy and few chronic lacunar infarcts. 2. No acute fracture or traumatic subluxation involving the cervical spine. Multilevel cervical spondylosis as detailed with severe right foraminal stenosis at C4-C5 and severe left foraminal stenosis at C5-C6. 3. Remote deformities of bilateral lamina papyracea and herniation of extraconal orbital fat with likely entrapment of the medial rectus muscles. Electronically signed by: Ephraim Oneil MD 07/24/2024 10:59 AM EDT Ribs X-Ray 07/24/24 08:00 IMPRESSION: Left 11th rib fracture. Electronically signed by: Fish Fabian MD 07/24/2024 10:47 AM EDT Cervical Spine CT 07/24/24 08:04 IMPRESSION: 1. No acute intracranial pathology. Diffuse volume loss and mild to moderate chronic microangiopathy and few chronic lacunar infarcts. 2. No acute fracture or traumatic subluxation involving the cervical spine. Multilevel cervical spondylosis as detailed with severe right foraminal stenosis at C4-C5 and severe left foraminal stenosis at C5-C6. 3. Remote deformities of bilateral lamina papyracea and herniation of extraconal orbital fat with likely entrapment of the medial rectus muscles. 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 Workup in the emergency room consistent with fractured left 11th rib. Also of note patient has acute kidney injury along with hyponatremia. She will be admitted for treatment of same 1. Hypovolemic hyponatremia -admit with lactated Ringer's at 100/hr -follow renal/divalent 2. Acute kidney injury -as per 1. 3. Type 2 diabetes -concern for intermittent hypoglycemia. We will continue all outpatient therapies and follow point of cares -lispro correctional scale -review data; changes based on forthcoming data 4. Fractured 11th rib on the left -oxycodone for pain -physical therapy consult in a.m. Full code Lovenox Requires at least 2 midnights going forward of inpatient hospitalization to correct hypovolemia and hyponatremia with volume repletion. High risk for outpatient failure. This can not be achieved a lesser acute setting Quality Stroke Does the patient have a stroke diagnosis?: No VTE Prior VTE?: No VTE Risk Level:: Medical - moderate - high VTE Device Contraindication: Treatment Not Indicated VTE Drug Contraindication: N/A - Med Ordered
--- NOTE | 2024-07-24 13:50 | PHA.MEDREC ---
Pharmacy Consult ? Medication Reconciliation Pharmacy has completed the medication reconciliation.
--- NOTE | 2024-07-24 14:36 | PC.NURSE ---
Report given to Lorri RN in overflow, plan to move patient once room is clean.
[2024-07-24] MEDS: Acetaminophen 325 MG TABLET 650 MG PO (14:39)
[2024-07-24 15:50] LABS: Glucose, Whole Blood 77 mg/dL (60-115)
[2024-07-24 16:00] VITALS: BP 124/63; PULSE 70; RESP 20; TEMP 36.4; O2SAT 98
[2024-07-24] MEDS: Lactated Ringers 1,000 ML 100 ML IVCONT (16:14)
[2024-07-24] MEDS: 0.9 % Sodium Chloride Flush 3 ML SYRINGE IVFLUSH (16:14)
[2024-07-24 19:51] VITALS: BMI 30.6
[2024-07-24 19:53] VITALS: BP 162/78; PULSE 71; RESP 18; TEMP 36.1; O2SAT 97
[2024-07-24 20:09] LABS: Glucose, Whole Blood 165 mg/dL (60-115)
[2024-07-24] MEDS: Insulin Lispro 100 UNIT/ML 3 ML VIAL SUBCUT (20:17)
[2024-07-24] MEDS: Melatonin 3 MG TABLET 6 MG PO (20:17)
[2024-07-25] MEDS: Lactated Ringers 1,000 ML 100 ML IVCONT (01:31)
[2024-07-25 03:28] VITALS: BP 159/69; PULSE 73; RESP 16; TEMP 36.1; O2SAT 93
[2024-07-25 06:25] LABS: MANUAL DIFF FLAG NO
[2024-07-25 06:55] LABS: Alanine Aminotransferase 31 U/L (0-31); Albumin Level 3.6 g/dL (3.5-5.0); Alkaline Phosphatase 62 U/L (39-117); Anion Gap 10 (12-20); Aspartate Amino Transferase 28 U/L (5-31); Bilirubin Total 0.3 mg/dL (0.0-1.0); Blood Urea Nitrogen 12 mg/dL (9-16); Calcium 9.6 mg/dL (8.4-10.2); Carbon Dioxide 27 mmol/L (22-29); Chloride 106 mmol/L (96-108); Creatinine Clr Calc Pharmacy 51.4; Estimated Glomerular Filt Rate > 60; Glucose Random 96 mg/dL (60-115); Potassium 3.4 mmol/L (3.3-5.1); Sodium 140 mmol/L (135-145); Total Protein 6.2 g/dL (6.5-8.0)
[2024-07-25 06:57] LABS: Basophils Absolute Auto 0.1 X10*3/uL (0.0-0.2); Basophils Percent Auto 0.5 % (0-2); Eosinophils Absolute Auto 0.2 X10*3/uL (0.0-0.4); Eosinophils Percent Auto 2.2 % (0-4); Hemoglobin 13.3 g/dl (12.0-16.0); Imm Gran Abs Auto 0.04 X10*3/uL (0.00-0.03); Imm Gran Pct Auto 0.4 % (0.0-0.4); Lymphocytes Absolute Auto 2.4 X10*3/uL (1.2-4.9); Lymphocytes Percent Auto 25.7 % (20-40); Mean Corpuscular HGB Conc 35.9 g/dl (31.0-35.0); Mean Corpuscular Volume 89.2 fL (80.0-98.0); Mean Platelet Volume 9.1 fL (9.4-12.3); Monocytes Percent Auto 10.4 % (2-11); Neutrophils Absolute Auto 5.7 x10*3/uL (2.0-8.3); Neutrophils Percent Auto 60.8 % (45-73); Platelet Count 220 X10*3/uL (160-400); Red Blood Count 4.15 X10*6/uL (4.20-5.50); White Blood Count 9.4 X10*3/uL (4.8-10.8)
[2024-07-25 07:26] LABS: Glucose, Whole Blood 93 mg/dL (60-115)
[2024-07-25 07:37] VITALS: BP 102/54; PULSE 75; RESP 18; TEMP 36.8; O2SAT 95
[2024-07-25 11:18] VITALS: BP 102/54; PULSE 75; O2SAT 95
[2024-07-25 11:23] LABS: Glucose, Whole Blood 187 mg/dL (60-115)
--- NOTE | 2024-07-25 12:20 | P.DS_ITS ---
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 She told her son-in-law both times that she felt her legs gave out and went to the floor. She denies loss of consciousness. She also denies palpitations prior to fall. On review of medications, patient takes glyburide twice daily. Son-in-law faithful with point of cares. Notes reviewed and several point of cares are in the 60s. She was also noted to be hyponatremic. She will be admitted for treatment of same Hospital course Patient admitted to general medical floor and volume repleted with lactated Ringer's. Within 24 hours patient's sodium calcium and renal function were back to baseline. Concern was for relative hypoglycemia. Discussed with son. Will DC glyburide until seen by primary care. Seen by Physical therapy and deemed appropriate for home. She will be discharged home and son is arranging services with [facility] Time Attestation Discharge Coordination Time (in mins): 35 Quality: Safe Use of Opioids Does Pt have an Active Cancer Diagnosis on the Problem List?: No Quality: Stroke Does the patient have a stroke diagnosis?: No Physical Exam Vital Signs: Vital Signs: Last Vital Signs Temp 98.2 F 07/25/24 07:37 Pulse 75 07/25/24 11:18 Resp 18 07/25/24 07:37 BP 102/54 L 07/25/24 11:18 Pulse Ox 95 07/25/24 11:18 O2 Del Method Room Air 07/25/24 07:37 BMI result Body Mass Index 30.6 Const: Other: Awake alert no acute distress Resp: Other: Clear but diminished at bases. Scattered expiratory wheezes Cardio: Other: No S4; positive S1-S2; no S3 murmurs rubs or gallops GI: Other: Soft nontender nondistended normoactive bowel sounds Neuro: Other: Cranial nerves 2-12 grossly intact bilaterally. No light reflex right eye. Mot or 5/5 all extremities sensation intact Extrem: Other: No edema DS: Data Data Completed and Pending Labs on day of discharge: Laboratory Results - last 24 hr 07/24/24 07/24/24 07/25/24 15:46 20:05 05:28 WBC 9.4 RBC 4.15 L Hgb 13.3 Hct 37.0 MCV 89.2 MCH 32.0 MCHC 35.9 H RDW 14.0 Plt Count 220 MPV 9.1 L Immature Gran % (Auto) 0.4 Neut % (Auto) 60.8 Lymph % (Auto) 25.7 [place] % (Auto) 10.4 Eos % (Auto) 2.2 Baso % (Auto) 0.5 Lymph # (Auto) 2.4 [place] # (Auto) 1.0 Eos # (Auto) 0.2 Baso # (Auto) 0.1 Abs Immat Gran (auto) 0.04 H Absolute Neuts (auto) 5.7 Absolute Nucleated RBC 0.000 Nucleated RBC % (auto) 0.0 Sodium Potassium Chloride Carbon Dioxide Anion Gap BUN Creatinine Estim Creat Clear Calc Estimated GFR POC Glucose 77 165 H Random Glucose Calcium Total Bilirubin AST ALT Alkaline Phosphatase Total Protein Albumin 07/25/24 07/25/24 07/25/24 06:14 07:22 11:17 WBC RBC Hgb Hct MCV MCH MCHC RDW Plt Count MPV Immature Gran % (Auto) Neut % (Auto) Lymph % (Auto) [place] % (Auto) Eos % (Auto) Baso % (Auto) Lymph # (Auto) [place] # (Auto) Eos # (Auto) Baso # (Auto) Abs Immat Gran (auto) Absolute Neuts (auto) Absolute Nucleated RBC Nucleated RBC % (auto) Sodium 140 Potassium 3.4 Chloride 106 Carbon Dioxide 27 Anion Gap 10 L BUN 12 Creatinine 0.87 Estim Creat Clear Calc 51.4 Estimated GFR > 60 POC Glucose 93 187 H Random Glucose 96 Calcium 9.6 D Total Bilirubin 0.3 AST 28 ALT 31 Alkaline Phosphatase 62 Total Protein 6.2 L Albumin 3.6 Discharge Plan Discharge Anticipated Discharge Date/Time: 07/25/24 12:14 Patient Disposition: Home, Self-Care Discharge Diagnosis: Acute kidney injury; fracture left 11th rib Referrals: Fatmata Catalan DO [Primary Care Provider] - 1 Week Discharge Medications: Continued levothyroxine 137 mcg tablet 137 mcg PO DAILY atorvastatin 80 mg tablet 80 mg PO DAILY spironolacton-hydrochlorothiaz 25-25 mg tablet 1 tab PO DAILY aspirin 81 mg Tablet,Delayed Release (Dr/Ec) 81 mg PO BEDTIME amitriptyline 50 mg tablet 50 mg PO BEDTIME bupropion HCl 100 mg tablet sustained-release 12 hr 100 mg PO BID propranolol 20 mg tablet 20 mg PO BID topiramate 50 mg tablet 50 mg PO BID metformin 500 mg tablet extended release 24 hr 1,000 mg PO DAILY omeprazole 40 mg capsule,delayed release(DR/EC) 40 mg PO DAILY timolol maleate 0.5 % drops 1 drp ophthalmic-Right BID brimonidine 0.2 % drops 1 drp ophthalmic-Right BID latanoprost 0.005 % drops 1 drp ophthalmic-Right BEDTIME (DME) lancets [OneTouch Delica Lancets] 30 gauge misc See Rx Instructions .ROUTE .MEDSUPPLY Qty: 100 Rx Instructions: As directed (DME) OneTouch Ultra Test Strip See Rx Instructions .ROUTE DAILY Qty: 10 Rx Instructions: As directed losartan 100 mg tablet 100 mg PO BEDTIME Discharge Orders: Discharge Order (Routine); Ordered 07/25/24 Ordered By: Liu Gerber Diet: Advance to usual diet Activity on Discharge: As tolerated Stand Alone Forms: Patient Portal Discharge page Print Language: [place] Care Plan Goals: Resume all medication as taken prior to hospitalization. . Glipizide until use seen by her primary care Health Concerns: Resume all pre-hospital therapies Plan of Treatment: Follow up with PCP and other providers as scheduled Assessment: See discharge summary
--- NOTE | 2024-07-25 12:28 | MHC.CM.PN ---
IMM 07/25/24, EMR REVIEWED, PT ADMITTED S/P FALL HOWEVER IS BEING DISCHARGED TODAY, PT'S DTR AND ABHAY AT BEDSIDE, PT LIVES ALONE, HAS A FWW HOWEVER IS INDEPENDENT W/AMBULATION, PT HAS NO HOME SERVICES AND PT'S ABHAY REPORTS HE IS GOING TO APPLY FOR MH FOR PT AND TRY TO GET PT A ASSISTED LIVING ASSOCIATE ALTHOUGH PT APPEARS CAPABLE OF CARING FOR SELF, PT'S GOAL FOR DC IS HOME [place]. PT DISCHARGING HOME NO SERVICES, FAMILY AT BEDSIDE FOR TRANSPORT. PT'S DTR REPORTS SHE WILL EMAIL COPY OF HCP TO CM ONCE HOME.
== END 2024-07-25 13:41 | disposition home or self-care (01) | DRG 641 ==
LOC: HO.ED 12:57 → HO.EDOVER 13:22 → HO.S3 19:02
PROVIDERS: Admitting Provider Hospitalist; Emergency Provider Emergency Medicine; PCP Internal Medicine; Visit Provider Hospitalist
DX: E86.1 Hypovolemia (principal); N17.9 Acute kidney failure, unspecified; S22.32XA Fracture of one rib, left side, initial encounter for closed fracture; F17.210 Nicotine dependence, cigarettes, uncomplicated; E11.51 Type 2 diabetes mellitus with diabetic peripheral angiopathy without gangrene; E87.1 Hypo-osmolality and hyponatremia; E11.43 Type 2 diabetes mellitus with diabetic autonomic (poly)neuropathy; E11.649 Type 2 diabetes mellitus with hypoglycemia without coma; W19.XXXA Unspecified fall, initial encounter; E83.52 Hypercalcemia; H54.61 Unqualified visual loss, right eye, normal vision left eye; Z71.6 Tobacco abuse counseling; Z79.82 Long term (current) use of aspirin; Z79.84 Long term (current) use of oral hypoglycemic drugs; Z79.899 Other long term (current) drug therapy
CPT/HCPCS: 36415; 70450; 71101; 72125; 80053; 81001; 82947; 84484; 85025; 87086; 93005; 96360; 96361; 97161; 99221; 99285; J7120

== ENCOUNTER → 2024-07-24 06:36 | Outpatient (BNV) | payer MEDICARE, SELFPAY | PROVIDERS: Admitting Provider Hospitalist; Emergency Provider Emergency Medicine; PCP Internal Medicine; Visit Provider Internal Medicine Cardiovascular Disease | DX: I73.9 Peripheral vascular disease, unspecified (principal); I10 Essential (primary) hypertension; E87.1 Hypo-osmolality and hyponatremia; N17.9 Acute kidney failure, unspecified | CPT/HCPCS: 93010 ==

== ENCOUNTER → 2024-07-24 13:13 | Outpatient (BNV) | payer MEDICARE, SELFPAY | PROVIDERS: Admitting Provider Hospitalist; Emergency Provider Emergency Medicine; PCP Internal Medicine; Visit Provider Hospitalist | DX: N17.9 Acute kidney failure, unspecified (principal); E87.1 Hypo-osmolality and hyponatremia; S22.32XA Fracture of one rib, left side, initial encounter for closed fracture; E11.43 Type 2 diabetes mellitus with diabetic autonomic (poly)neuropathy | CPT/HCPCS: 99223; 99239 ==